=== PATIENT | male | born 1950 | race Caucasian/White ===

== ENCOUNTER 2020-03-12 11:00 | Emergency (ER) | payer MEDICARE, SELFPAY ==
--- NOTE | ~2020-03-12 | CT_ITS ---
EXAMINATION: CTA chest PE abdomen pel DATE: 03/12/2020 12:40 INDICATION: Shortness of breath. Chest pain. Cough. TECHNIQUE: Computed tomography angiography (CTA) of the chest was performed with 100 mL Omnipaque-350 intravenous contrast timed to evaluate the pulmonary arteries. Coronal maximum intensity projection 3D-reconstructions were created by the technologist. Computed tomography (CT) of the abdomen and pelv is was performed with intravenous contrast. Automated exposure control and iterative reconstruction t echnique were employed. The dose-length product was 2513.46 mGy-cm. COMPARISON: Chest CT 10/15/2019, 10/20/2008, CT abdomen and pelvis 03/17/2018 FINDINGS: CTA chest: There is mild emphysema. There is mild atelectasis bilaterally. There is a 6 mm nodule in right upper lobe, stable from 10/20/2008. No pleural effusion. The heart size is normal. There are co ronary artery calcifications. No pericardial effusion. There is no pulmonary embolus. There is mild b ilateral hilar lymphadenopathy, likely reactive. There is mild thoracic spondylosis. CT abdomen and pelvis: There is a 12 mm cyst in the liver. There are changes of cholecystectomy. Calc ifications in the spleen are consistent with old granulomatous disease. The pancreas and right adrena l gland are normal. There is a 2.7 cm mass in left adrenal gland measuring low-attenuation, consisten t with an adenoma. There is cortical thinning of the kidneys. There are cysts in the kidneys measurin g up to 4.2 cm on the right. There is chronic mild diffuse bladder wall thickening, likely secondary to chronic outlet obstruction from the mildly enlarged prostate. There are no pathologically enlarged lymph nodes. There is no free intraperitoneal fluid. There is a right inguinal hernia containing fat . There is moderate lumbar spondylosis. IMPRESSION: 1. No pulmonary embolus. 2. Mild emphysema. 3. Mild bilateral hilar lymphadenopathy, likely reactive. 4. Right inguinal hernia containing fat. Reviewed, dictated and finalized at location A.
--- NOTE | ~2020-03-12 | XR_ITS ---
EXAMINATION: XR chest 1V portable DATE: 03/12/2020 11:55 INDICATION: Cough and shortness of breath. TECHNIQUE: A single frontal view of the chest was obtained on 2 radiographs. COMPARISON: Chest 2 views 01/26/2018, chest CT 10/15/2019 FINDINGS: The chest demonstrates clear lungs without pneumonia, pleural effusion, or pneumothorax. Th e heart size is normal. IMPRESSION: 1. No acute cardiopulmonary disease. Reviewed, dictated and finalized at location A.
[2020-03-12 11:12] VITALS: BP 119/85; PULSE 57; RESP 13; TEMP 36.6; O2SAT 100
--- NOTE | 2020-03-12 11:12 | ECG_ITS ---
Measurements Intervals [place] Rate: 54 P: 15 NE: 201 QRS: 30 QRSD: 92 T: 63 QT: 430 QTc: 410 Interpretive Statements SINUS BRADYCARDIA BORDERLINE AV CONDUCTION DELAY BORDERLINE ST-T WAVE ABNORMALITY- LATERAL LEADS BORDERLINE ECG Electronically Signed On 03-12-2020 11:18:55 CDT by Rio Ng D.O.
[2020-03-12 11:17] VITALS: PULSE 59
[2020-03-12 11:18] VITALS: O2SAT 100
--- NOTE | 2020-03-12 11:36 | ED.SOB ---
HPI - SOB/Dyspnea General Chief Complaint: Shortness of Breath/Dyspnea Stated Complaint: cough/congestion/shortness of breath Time Seen by Provider: 03/12/20 11:12 Source: patient and family Mode of arrival: ambulatory Limitations: no limitations History of Present Illness HPI Narrative: Patient is a 69 male who presents to emergency department for evaluation of cough that is productive of clear phlegm with congestion rhinorrhea mild sore throat and over the last week has become more dyspneic called his primary care today was instructed to come to the emergency department. Patient denies sick contacts. Patient presents with his resting comfortably in the room in no distress. Patient notes he gets some mild irritation of the chest with coughing and deep breathing. Patient denies vomiting diarrhea. Patient also notes he experiences some lightheadedness and dizziness with exertional activities Related Data Home Medications Medication Instructions Recorded Confirmed amlodipine 10 mg tablet 10 mg PO DAILY 10/04/19 02/12/20 carvedilol 12.5 mg tablet 12.5 mg PO Q12H 01/31/20 02/12/20 simvastatin 20 mg tablet 20 mg PO DAILY 01/31/20 02/12/20 Allergies Allergy/AdvReac Type Severity Reaction Status Date / Time No Known Allergies Allergy Verified 02/07/20 08:40 Review of Systems Review of Systems: All systems reviewed & are unremarkable except as noted in HPI and below PMFSH Past Medical History Medical History Acute right-sided low back pain with right-sided sciatica Adult general medical exam Anxiety CAD in [place] artery Cirrhosis of liver without ascites Constipation Dizziness Dyslipidemia Dyspnea on exertion Encounter for screening for malignant neoplasm of colon Encounter for screening for malignant neoplasm of prostate Essential (primary) hypertension Gastro-esophageal reflux disease without esophagitis Generalized abdominal pain Hernia History of calculus of gallbladder Hyperglycemia Hypothyroidism, unspecified Left ankle pain Low back pain Morbid obesity with BMI of 40.0-44.9, adult Numbness and tingling of both feet Other fatigue Paresthesia of skin Preop cardiovascular exam Pure hypercholesterolemia Scrotal mass Spinal stenosis of lumbar region Syncope and collapse TIA (transient ischemic attack) Tobacco abuse (~1967) Unspecified cataract Surgical History Surgical History History of elbow surgery History of hand surgery History of plastic surgery History of right knee surgery History of shoulder surgery Social History Social History Years smoked: 50 Smoking status: Heavy tobacco smoker Tobacco type: cigarettes Second hand tobacco smoke exposure: Yes Alcohol intake: current Substance use: never Gender identity (if verbalized by the patient): Male Exam Narrative: Exam Narrative: GENERAL: Well-appearing, obese, and in no acute distress. HEAD: Normocephalic, atraumatic. EYES: PERRLA and EOMI. ENT: Nares clear, no rhinorrhea or epistaxis. Mucous membranes moist. Oropharynx without tonsillar hypertrophy exudate or other lesions. NECK: Supple. No adenopathy or masses. CHEST: Clear to auscultation. No respiratory distress. No wheezes rales or rhonchi HEART: Regular rate and rhythm. No murmur heard. Normal peripheral pulses. ABDOMEN: Soft, nontender, nondistended EXTREMITIES: Normal range of motion. No edema. SKIN: Warm, dry, no rash. NEURO: No focal deficits. Alert and oriented x3. Cranial nerves II through XII grossly intact PSYCH: Normal mood and affect. Course Course Emergency Course: Patient in the room at this time in no distress with likely prostatitis no pneumonia or other high risk changes in his imaging or evaluation normal vital signs felt appropriate for outpatient reevaluation agreeing to oscar
[2020-03-12 11:56] LABS: Basophils Absolute Auto 0.1 K/mm3 (0.0-0.1); Basophils Percent Auto 0.6 % (0.2-1.2); Eosinophils Absolute Auto 0.5 K/mm3 (0-0.3); Eosinophils Percent Auto 4.7 % (0-4.4); Hematocrit 41.6 % (42.0-52.0); Hemoglobin 14.1 g/dL (14.0-18.0); Immature Granulocyte Absolute 0.03 K/mm3 (0.00-0.031); Immature Granulocyte Percent A 0.3 % (0-0.5); Lymphocytes Absolute Auto 2.23 K/mm3 (0.9-3.2); Lymphocytes Percent Auto 20.6 % (18.3-44.2); Mean Corpuscular HGB Conc 33.9 g/dl (32-36); Mean Corpuscular Hemoglobin 31.8 pg (26-34); Mean Corpuscular Volume 93.9 fl (80-100); Mean Platelet Volume 11.6 fl (7.4-10.4); Monocytes Percent Auto 9.4 % (2.6-8.5); Neutrophils Percent Auto 64.4 % (45.5-73.1); Platelet Count Result 206 k/mm3 (150-375); Red Blood Count 4.43 M/mm3 (4.6-6.20); Red Cell Distribution Width 12.9 % (11.5-14.5); White Blood Count 10.8 K/mm3 (4.5-10.0)
[2020-03-12 12:07] LABS: Alanine Aminotransferase 15 U/L (4-50); Albumin Level 4.1 g/dL (3.5-5.1); Alkaline Phosphatase 71 U/L (38-126); Aspartate Amino Transferase 18 U/L (17-59); Bilirubin,Total 0.7 mg/dL (0.2-1.3); Blood Urea Nitrogen 12 mg/dL (9-20); Calcium 9.1 mg/dL (8.4-10.2); Carbon Dioxide 27 mmol/L (22-30); Chloride 106 mmol/L (98-107); Estimated CRCL calculation 121 ml/min; Estimated Glomerular Filt Rate > 60; Glucose 107 mg/dL (75-110); Lipase 191 U/L (23-300); Prothrombin Time 12.7 Seconds (11.1-14.7); Sodium 139 mmol/L (137-145)
[2020-03-12 12:08] LABS: Lactic Acid Reflex 0.9 mmol/L (0.7-2.1)
[2020-03-12 12:08] LABS: Partial Thromboplastin Time 28.9 SECONDS (22.3-36.8)
[2020-03-12 12:10] LABS: D Dimer 0.56 ug/mL (<0.48)
[2020-03-12 12:20] LABS: NT Pro B Type Natriuretic Pept 54 PG/ML (5-100); Troponin I < 0.012 ng/mL (0.000-0.034)
[2020-03-12 12:28] LABS: Add Urine Microscopic? YES; Appearance Urine Cloudy (Clear); Bacteria Urine Trace /hpf; Bilirubin Urine Negative (Negative); Blood Urine Negative (Negative); Color Urine Yellow (Yellow); Glucose Urine UA Negative (Negative); Ketones Urine Negative (Negative); Leukocyte Esterase Ur 2+ LEU/UL (Negative); Mucus Urine Rare /lpf; Nitrate Urine Positive (Negative); Protein Urine Negative (Negative); Specific Grav Ur 1.016 (1.001-1.035); Squamous Epithelial Cell Urine Few /hpf (Few); WBC Urine >75 /hpf
[2020-03-12 14:35] VITALS: BP 160/61; PULSE 50; RESP 16; O2SAT 99
== END 2020-03-12 14:40 | disposition home or self-care (01) ==
PROVIDERS: Emergency Medicine Emergency Medical Services; Emergency Provider Emergency Medicine; PCP Internal Medicine
DX: J06.9 Acute upper respiratory infection, unspecified (principal); N41.9 Inflammatory disease of prostate, unspecified; B96.89 Other specified bacterial agents as the cause of diseases classified elsewhere; J43.9 Emphysema, unspecified; I25.10 Atherosclerotic heart disease of native coronary artery without angina pectoris; K74.60 Unspecified cirrhosis of liver; E78.5 Hyperlipidemia, unspecified; K21.9 Gastro-esophageal reflux disease without esophagitis; I10 Essential (primary) hypertension; E03.9 Hypothyroidism, unspecified; E66.01 Morbid (severe) obesity due to excess calories; Z68.39 Body mass index [BMI] 39.0-39.9, adult; Z86.73 Personal history of transient ischemic attack (TIA), and cerebral infarction without residual deficits; H26.9 Unspecified cataract; F17.210 Nicotine dependence, cigarettes, uncomplicated; K44.9 Diaphragmatic hernia without obstruction or gangrene; R00.1 Bradycardia, unspecified; R94.31 Abnormal electrocardiogram [ECG] [EKG]; R06.02 Shortness of breath
CPT/HCPCS: 36415; 71045; 71275; 74177; 80053; 81001; 83605; 83690; 83880; 84484; 85025; 85380; 85610; 85730; 87040; 87077; 87086; 87088; 87186; 93005; 96365; 96375; 99284; J0131; J0696; Q9967

== ENCOUNTER → 2020-09-02 06:58 | Outpatient (CLI) | payer MEDICARE, SELFPAY ==
--- NOTE | ~2020-09-02 | US_ITS ---
EXAMINATION: US abdomen complete EXAM DATE: 09/02/2020 08:14 INDICATION: Epigastric pain. Unable to eat due to pain with eating. TECHNIQUE: Multiple grayscale and Doppler images of the complete abdomen were obtained (by a technolo gist who performed the scan) and subsequently reviewed. There is no prior study for comparison. FINDINGS: The abdominal aorta is normal in caliber. Visualized portion IVC is patent. The pancreatic head a nd body are normal in appearance. The pancreatic tail is not visualized. The liver has normal echogenicity and contour. There are no focal liver lesions identified. There is no evidence of intrahepatic biliary duct dilation. Portal venous flow was seen in the hepatopedal , normal direction and has normal Doppler waveform. Common bile duct measures 6 mm, which is normal. The gallbladder fossa is unremarkable. Right kidney: There is normal contour and echogenicity. It measures 12.5 x 5.5 x 6.5 centimeters. T here are several cysts, largest measuring 5.2 cm. There is no hydronephrosis. Left kidney: There is normal contour and echogenicity. It measures 11.4 x 6.3 x 5.9 centimeters. Se veral cysts, up to 3.8 cm. There is no hydronephrosis. The spleen measures 11.9 centimeters and is morphologically normal. IMPRESSION: 1. Unremarkable gallbladder fossa. No biliary dilation. 2. Renal cysts. Reviewed, dictated and finalized at location B.
== END ==
PROVIDERS: PCP Internal Medicine; Visit Provider Internal Medicine
DX: R10.13 Epigastric pain (principal); N28.1 Cyst of kidney, acquired
CPT/HCPCS: 76700

== ENCOUNTER 2020-09-19 07:38 | Outpatient (CLI) | payer MEDICARE, SELFPAY ==
--- NOTE | ~2020-09-19 | NM_ITS ---
EXAMINATION: NM patricio stress w perfusion DATE: 09/19/2020 11:15 INDICATION: Chest pain. TECHNIQUE: Rest images were obtained following intravenous administration of 9.3 mCi Tc99m tetrofosmi n (Myoview). The patient was infused intravenously with Lexiscan (regadenoson). Then, 30.2 mCi Tc99m tetrofosmin (Myoview) was administered intravenously, and stress images were obtained. Data was recon structed into short axis and horizontal and vertical long axis SPECT images. Gated SPECT images were also obtained. COMPARISON: Myocardial perfusion imaging 04/30/2019, chest CT 03/12/2020 FINDINGS: There is a small, mild, fixed perfusion defect involving mid anterolateral segment of left ventricle, consistent with infarct. No reversible component to suggest ischemia. There is no segment al wall motion abnormality. Left ventricular ejection fraction measures 63%. IMPRESSION: 1. Small area of mild infarct involving mid anterolateral segment of left ventricle. 2. Normal left ventricular ejection fraction measuring 63%. Reviewed, dictated and finalized at location A. IMPRESSION: 1. Small area of mild infarct involving mid anterolateral segment of left ventr icle. 2. Normal left ventricular ejection fraction measuring 63%.
--- NOTE | 2020-09-19 08:02 | ECHO_ITS ---
Patient Info Name: Hugh Diehl Age: 70 years : 1950 Gender: Male Ht: 71 in Wt: 262 lbs BSA: 2.48 m2 HR: 52 bpm BP: 128 / 72 mmHg Technical Quality: Fair Exam Date: 09/19/2020 8:14 AM Exam Location: [facility] Pulmonary Patient Status: Outpatient Admit Date: 09/19/2020 Staff Ordering Physician: Rio Ng DO Sugar Trucker: Luz Allen RDCS Attending Provider: Rio Ng DO Referring Physician: Hernandez AGUIRRE; Exam Type: CA echo doppler color flow Study Info Indications R07.89 - Other chest pain Complete two-dimensional, color flow and Doppler transthoracic echocardiogram is performed. Summary 1. Complete two-dimensional, color flow and Doppler transthoracic echocardiogram is performed. 2. Left ventricular chamber dimension is normal. 3. Left ventricular systolic function is normal, estimated at 60-65%. 4. There is mildly increased left ventricular wall thickness. 5. The left ventricular diastolic function is abnormal. 6. E/e' 22 is elevated. 7. Left atrial chamber dimension is mildly enlarged. 8. There is moderate aortic valve sclerosis. 9. There is mild aortic valve stenosis with a peak velocity of 311 cm/s, mean gradient of 19 mmHg, and aortic valve area of 1.6 cm2. 10. The mitral valve has moderately calcified annulus. 11. There is mild mitral valve regurgitation. 12. There is trace tricuspid valve regurgitation. 13. No pulmonary hypertension, estimated pulmonary arterial systolic pressure is 26 mmHg. 14. There is small right sided pericardial effusion. Left Ventricle E/e' 22 is elevated. Left ventricular chamber dimension is normal. Left ventricular systolic function is normal, estimated at 60-65%. There is mildly increased left ventricular wall thickness. The left ventricular diastolic function is abnormal. Right Ventricle Right ventricular chamber dimension is normal. Right ventricular systolic function is normal. Left Atria Left atrial chamber dimension is mildly enlarged. Right Atria Right atrial chamber dimension is normal. Aortic Valve The aortic valve is trileaflet. There is moderate aortic valve sclerosis. There is mild aortic valve stenosis with a peak velocity of 311 cm/s, mean gradient of 19 mmHg, and aortic valve area of 1.6 cm2. There is no aortic valve regurgitation. Pulmonic Valve There is no pulmonic regurgitation. Mitral Valve The mitral valve has moderately calcified annulus. There is no mitral valve stenosis. There is mild mitral valve regurgitation. Tricuspid Valve There is trace tricuspid valve regurgitation. No pulmonary hypertension, estimated pulmonary arterial systolic pressure is 26 mmHg. Pericardium/Pleural There is small right sided pericardial effusion. Inferior Vena Cava Normal inferior vena cava with >50% collapse upon inspiration consistent with normal right atrial pressure, 5 mmHg. Aorta The aortic root size at the sinus of Valsalva is normal. Left Ventricular Outflow Tract Name Value Normal LVOT 2D LVOT Diameter 2.0 cm LVOT Doppler LVOT Peak Gradient 8 mmHg LVOT Mean Gradient
--- NOTE | 2020-09-19 08:04 | EST_ITS ---
Patient Info Name: Hugh Diehl Age: 70 years : 1950 Gender: Male Ht: 71 in Wt: 262 lbs BSA: 2.48 m2 Exam Date: 09/19/2020 9:35 AM Exam Location: [facility] Stress Patient Status: Outpatient Admit Date: 09/19/2020 Staff Ordering Physician: Rio Ng DO Attending Provider: Rio Ng DO Exercise Technologist: Luz Allen RDCS Exercise Physician: Rio Ng DO Exam Type: CA stress patricio w NM Study Info Indications R07.89 - Other chest pain A regadenoson stress test was performed. Summary 1. 1. Negative lexiscan stress test for ischemic ST changes by ECG criteria. 2. 2. Stable hemodynamics throughout the test. 3. 3. Nuclear scan to follow and will be reported separately. Please correlate with it. 4. 4. Patient informed of the above results. Protocol: Lexiscan Stress ECG Details Stage: REST Duration (min): 5 min : 7 sec HR (bpm): 52 SBP (mmHg): 134 DBP (mmHg): 71 Stage: REST Duration (min): 10 min : 49 sec HR (bpm): 52 SBP (mmHg): 134 DBP (mmHg): 71 Stage: STAGE 1 Duration (min): 1 min : 0 sec HR (bpm): 62 SBP (mmHg): 109 DBP (mmHg): 63 Stage: RECOVERY Duration (min): 1 min : 0 sec HR (bpm): 64 SBP (mmHg): 107 DBP (mmHg): 62 Stage: RECOVERY Duration (min): 2 min : 0 sec HR (bpm): 61 SBP (mmHg): 107 DBP (mmHg): 62 Stage: RECOVERY Duration (min): 3 min : 0 sec HR (bpm): 62 SBP (mmHg): 121 DBP (mmHg): 62 Stage: RECOVERY Duration (min): 3 min : 3 sec HR (bpm): 61 SBP (mmHg): 121 DBP (mmHg): 62 Rest HR: 52 bpm Peak HR: 65 bpm Rest Sys BP: 134 mmHg Peak Sys BP: 121 mmHg Max Pred HR: 152 bpm % Max Pred HR: 43 % Target HR: 129 bpm Max RPP: 7,865 bpm*mmHg Termination Reason: Completed protocol Cardiac Symptoms: Shortness of breath Total Time: 1 min : 0 sec Rest Flower BP: 71 mmHg Peak Flower BP: 62 mmHg Total Dose: 0.4 mg Resting ECG Sinus bradycardia. Stress ECG No ST changes. Arrhythmias None. Report Signatures
== END 2020-09-19 07:39 | disposition home or self-care (01) ==
PROVIDERS: PCP Internal Medicine; Visit Provider Internal Medicine Cardiovascular Disease
DX: R07.89 Other chest pain (principal); I34.0 Nonrheumatic mitral (valve) insufficiency; I35.1 Nonrheumatic aortic (valve) insufficiency
CPT/HCPCS: 78452; 93017; 93306; A9502; J2785

== ENCOUNTER → 2021-02-12 12:13 | Outpatient (CLI) | payer MEDICARE, SELFPAY ==
--- NOTE | ~2021-02-12 | XR_ITS ---
EXAMINATION: XR chest 2V DATE: 02/12/2021 12:31 INDICATION: Cough. TECHNIQUE: Frontal and lateral views of the chest were obtained on 3 radiographs. COMPARISON: Chest single view 03/12/2020, chest CT 03/12/2020 FINDINGS: There are interstitial opacities in the lower lung zones. No pleural effusion or pneumothor ax. The heart size is normal. There are surgical clips in the abdomen. IMPRESSION: 1. Interstitial opacities in the lower lung zones, consistent with mild pulmonary edema versus mild a telectasis/scarring. Reviewed, dictated and finalized at location A. IMPRESSION: 1. Interstitial opacities in the lower lung zones, consistent with mild pulmona ry edema versus mild atelectasis/scarring.
== END ==
PROVIDERS: PCP Physician Assistant; Visit Provider Physician Assistant
DX: R05 Cough (principal); R91.8 Other nonspecific abnormal finding of lung field
CPT/HCPCS: 71046

== ENCOUNTER 2021-06-17 15:11 | Emergency (ER) | payer MEDICARE, SELFPAY ==
--- NOTE | ~2021-06-17 | XR_ITS ---
XR knee LT min 4V DATE: 06/17/2021 15:42 INDICATION: Generalized left knee pain. [place]. TECHNIQUE: [place], lateral, bilateral oblique, AP views COMPARISON: None FINDINGS: Diffuse osteopenia. There is extensive calcification of the femoral, popliteal and trifurcation arteries. No fracture or dislocation, periosteal reaction or bone destruction is evident. There is osteoarthrit is at the patellofemoral compartment. No chondrocalcinosis or radiopaque intra-articular loose body i s evident. Chondrocalcinosis of the patella at the quadriceps and patellar tendon insertions. 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
[2021-06-17 15:18] VITALS: BP 145/66; PULSE 72; RESP 18; TEMP 36.6; O2SAT 99
--- NOTE | 2021-06-17 15:52 | ED.GENADULT ---
HPI - General Adult General Chief complaint: Extremity Injury, Lower Stated complaint: Possible injury to left Knee Time Seen by Provider: 06/17/21 15:52 Source: patient and RN notes reviewed Mode of arrival: ambulatory Limitations: no limitations History of Present Illness HPI narrative: 70-year-old male presents with complaints of left knee pain and swelling for the past 11 days. 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 Hydrocodone 10mg with 325 mg of Tylenol last taken today at 3 PM without relief. No known injury. ?No radiation of pain. No numbness or tingling, or bleeding. No loss of mobility. Exacerbating factor consists of bearing weight. No fever or chills. Remains active. The patient reports he has not been diagnosed with COVID-19. ?The patient reports he received 2 Moderna COVID-19 vaccines. ?The patient reports he is not waiting for the results of a COVID-19 lab test. ?The patient reports he does not have weakness, fatigue, or myalgia. ?The patient reports he does not have a new or worsening cough or shortness of breath. ?The patient reports he does not have any rhinorrhea, congestion, loss of taste or smell, sore throat, and diarrhea. ?Recently travelled for work,?returned today. ?Denies concerns for COVID-19 or exposures. ?At this time, the patient is not suspected of having COVID-19. Some parts of this dictation were generated by voice recognition software and may contain typographical and/or grammatical inaccuracies. Related Data Allergies Allergy/AdvReac Type Severity Reaction Status Date / Time No Known Allergies Allergy Verified 06/19/21 10:32 Review of Systems Review of Systems: Narrative: CONSTITUTIONAL: Denies fever, chills, sweats. EYES: Denies visual changes, redness, discharge. ENT: Denies rhinorrhea, congestion, sore throat, otalgia. CARDIOVASCULAR: Denies chest pain, palpitations, edema. RESPIRATORY: Denies dyspnea, wheezing, cough. GASTROINTESTINAL: Denies abdominal pain, nausea, vomiting, diarrhea. GENITOURINARY: Denies dysuria, hematuria, abnormal discharge SKIN: Denies rash or itching. MUSCULOSKELETAL: Denies acute back pain or myalgia. Complains of Left knee pain and swelling. NEUROLOGIC: Denies numbness or focal weakness. PSYCHIATRIC: Denies anxiety or depression. All other systems reviewed & are unremarkable except as noted in HPI and below. [facility] Past Medical History Medical History Acute right-sided low back pain with right-sided sciatica Adult general medical exam Anxiety CAD in [place] artery Cirrhosis of liver without ascites Constipation Dizziness Dyslipidemia Dyspnea on exertion Encounter for screening for malignant neoplasm of colon Encounter for screening for malignant neoplasm of prostate Epigastric pain Essential (primary) hypertension Gastro-esophageal reflux disease without esophagitis Generalized abdominal pain Hernia History of calculus of gallbladder Hyperglycemia Hypothyroidism, unspecified Left ankle pain Low back pain Morbid obesity with BMI of 40.0-44.9, adult Numbness and tingling of both feet Other fatigue Paresthesia of skin Preop cardiovascular exam Pure hypercholesterolemia Scrotal mass Spinal stenosis of lumbar region Syncope and collapse TIA (transient ischemic attack) Tobacco abuse (~1967) Unspecified cataract Surgical History Surgical History History of elbow surgery History of hand surgery History of plastic surgery History of right knee surgery History of shoulder surgery Family History Family History Sibling Hypertension Patient's brother is in good health Family history of diabetes mellitus in first degree relative Father Patient's father is Family history of congestive heart failure, Onset
[2021-06-17] MEDS: KETOROLAC (*BKC) 60 MG/2 ML VIAL IM (16:10)
== END 2021-06-17 16:56 | disposition home or self-care (01) ==
PROVIDERS: Emergency Provider Nurse Practitioner Family; PCP Internal Medicine
DX: M17.12 Unilateral primary osteoarthritis, left knee (principal); F17.210 Nicotine dependence, cigarettes, uncomplicated; F41.9 Anxiety disorder, unspecified; I25.10 Atherosclerotic heart disease of native coronary artery without angina pectoris; K74.60 Unspecified cirrhosis of liver; E78.5 Hyperlipidemia, unspecified; K21.9 Gastro-esophageal reflux disease without esophagitis; I10 Essential (primary) hypertension; E03.9 Hypothyroidism, unspecified; E66.01 Morbid (severe) obesity due to excess calories; Z68.37 Body mass index [BMI] 37.0-37.9, adult; E78.00 Pure hypercholesterolemia, unspecified; Z86.73 Personal history of transient ischemic attack (TIA), and cerebral infarction without residual deficits; M48.061 Spinal stenosis, lumbar region without neurogenic claudication
CPT/HCPCS: 73564; 96372; 99213; G0463; J1885

== ENCOUNTER → 2021-08-06 02:39 | Outpatient (CLI) | payer MEDICARE, SELFPAY ==
[2021-08-07 18:57] LABS: SARS-CoV-2 RNA PCR Negative
== END ==
PROVIDERS: PCP Internal Medicine; Visit Provider Internal Medicine
DX: R43.2 Parageusia (principal); Z20.822 Contact with and (suspected) exposure to COVID-19
CPT/HCPCS: C9803; U0003; U0005

== ENCOUNTER 2021-10-21 01:25 | Day surgery (SDC) | payer MEDICARE, SELFPAY ==
[2021-10-21] MEDS: LACTATED RINGERS 1,000 ML 150 ML IV CONT (07:24)
--- NOTE | 2021-10-21 07:26 | WPDANESEPPF ---
Anes - Initial Pre Proc Eval Procedure: Operation Date: 10/21/21 08:30 Proposed Procedures p Colonoscopy - Glenn Irizarry MD Date/Time: 10/21/21 07:26 Surgeon: Glenn Irizarry MD Pre Op Diagnosis: change in bowel habits Patient Data Age: 71 Gender: M Height: Weight: Allergies Allergy/AdvReac Type Severity Reaction Status Date / Time No Known Allergies Allergy Verified 10/21/21 07:17 Home Medications Medication Instructions Recorded Confirmed Type simvastatin 20 mg tablet 20 mg PO DAILY #90 tablet 12/29/20 10/08/21 Rx albuterol sulfate 90 mcg/actuation 1 - 2 inh INHALATION Q4-6H PRN 03/04/21 10/21/21 Rx aerosol inhaler #8.5 g amlodipine 10 mg tablet 10 mg PO DAILY #90 tablet 09/09/21 10/21/21 Rx famotidine 40 mg tablet 40 mg PO BID #180 tablet 09/09/21 10/21/21 Rx lisinopril 40 mg tablet 40 mg PO DAILY #90 tablet 09/09/21 10/21/21 Rx paroxetine HCl 40 mg tablet 40 mg PO DAILY #90 tablet 09/09/21 10/08/21 Rx hydrocodone 10 mg-acetaminophen 1 tablet PO Q8H PRN #60 tablet 09/15/21 10/21/21 Rx 325 mg tablet carvedilol 12.5 mg PO DAILY 10/08/21 10/21/21 History fluticasone propion-salmeterol 1 inh INHALATION BID 10/08/21 10/21/21 History [AirDuo RespiClick] levothyroxine [Synthroid] 75 mcg PO DAILY 10/08/21 10/21/21 History Patient hx anesthesia problems: none Family hx anesthesia problems: none Results Review: All pre-operative results and documents have been reviewed as part of the pre-operative evaluation. [facility] Past Medical History Medical History Acute right-sided low back pain with right-sided sciatica Adult general medical exam Anxiety CAD in [place] artery Cirrhosis of liver without ascites Constipation Dizziness Dyslipidemia Dyspnea on exertion Encounter for screening for malignant neoplasm of colon Encounter for screening for malignant neoplasm of prostate Epigastric pain Essential (primary) hypertension Gastro-esophageal reflux disease without esophagitis Generalized abdominal pain Hernia History of calculus of gallbladder Hyperglycemia Hypothyroidism, unspecified Left ankle pain Low back pain Morbid obesity with BMI of 40.0-44.9, adult Numbness and tingling of both feet Other fatigue Paresthesia of skin Preop cardiovascular exam Pure hypercholesterolemia Scrotal mass Spinal stenosis of lumbar region Syncope and collapse TIA (transient ischemic attack) Tobacco abuse (~1967) Unspecified cataract Surgical History Surgical History History of elbow surgery History of hand surgery History of plastic surgery History of right knee surgery History of shoulder surgery Family History Family History Sibling Hypertension Patient's brother is in good health Family history of diabetes mellitus in first degree relative Father Patient's father is Family history of congestive heart failure, Onset Age: 73 Mother Diabetes mellitus, Onset Age: 80 Family history of congestive heart failure, Onset Age: 80 Social History Social History Smoking packs per day: 1 Smoking cigarettes per day: 20.0 Years smoked: 40 Smoking pack-years: 40.00 Smoking status: Current every day smoker Tobacco type: cigarettes Second hand tobacco smoke exposure: Yes Additional smoking assessment comments: Hugh has decreased smoking to 1PPD at this time Alcohol intake: current Drinks per week: 3 Substance use type: opiates Other substance usage details: for chronic back pain Living arrangements: with family Gender identity (if verbalized by the patient): Male Sexual Orientation (if Verbalized by the Patient): Straight or Heterosexual Spiritual care concerns: No Anes - Eval Final PreProcedure Day of
[2021-10-21 07:27] VITALS: BP 141/64; PULSE 65; RESP 18; TEMP 36.2; O2SAT 97; BMI 36.4
--- NOTE | 2021-10-21 07:51 | PM.HPGS ---
History of Present Illness History of Present Illness Consent: Risks, benefits, and alternatives have been discussed and questions answered. Patient agrees to proceed with procedure. Chief complaint: change in bowel habits Narrative: Hugh Diehl is a 71 year old male with chronic constipation using dulcolax and Mag citrate as needed but also on hydrocodone for almost 20 years, intermittent abdominal pain. Last colonoscopy 5 years ago. Review of Systems Constitutional: Constitutional: Denies headache(s) and Denies weakness Eyes: Eyes: Denies blurry vision ENT: Reports Normal hearing present, Denies headache(s) and Denies neck pain Cardiovascular: Cardiovascular: Denies chest pain and Denies dyspnea Respiratory: Respiratory: Denies dyspnea Gastrointestinal: Gastrointestinal: Reports no additional gastrointestinal complaints Genitourinary: Genitourinary: Denies dysuria Musculoskeletal: Musculoskeletal: Denies neck pain Integumentary/Breasts: Skin/Breast: Denies dry skin Neurologic: Reports Normal hearing present, Denies headache(s) and Denies weakness Psychiatric: Psychiatric: Denies anxiety Endocrine: Endocrine: Denies change in body appearance Hematologic/Lymphatic: Hematologic/Lymphatic: Denies easy bleeding Allergic/Immunologic: Allergic/Immunologic: Denies urticaria PMF Past Medical History Medical History (Updated 10/21/21 @ 07:53 by Glenn Irizarry MD) Abdominal pain Acute right-sided low back pain with right-sided sciatica Adult general medical exam Anxiety CAD in [place] artery Cirrhosis of liver without ascites Constipation Constipation due to opioid therapy Dizziness Dyslipidemia Dyspnea on exertion Encounter for screening for malignant neoplasm of colon Encounter for screening for malignant neoplasm of prostate Epigastric pain Essential (primary) hypertension Gastro-esophageal reflux disease without esophagitis Generalized abdominal pain Hernia History of calculus of gallbladder Hyperglycemia Hypothyroidism, unspecified Left ankle pain Low back pain Morbid obesity with BMI of 40.0-44.9, adult Numbness and tingling of both feet Other fatigue Paresthesia of skin Preop cardiovascular exam Pure hypercholesterolemia Scrotal mass Spinal stenosis of lumbar region Syncope and collapse TIA (transient ischemic attack) Tobacco abuse (~1967) Unspecified cataract Surgical History Surgical History History of elbow surgery History of hand surgery History of plastic surgery History of right knee surgery History of shoulder surgery Family History Family History Sibling Hypertension Patient's brother is in good health Family history of diabetes mellitus in first degree relative Father Patient's father is Family history of congestive heart failure, Onset Age: 73 Mother Diabetes mellitus, Onset Age: 80 Family history of congestive heart failure, Onset Age: 80 Social History Social History Smoking packs per day: 1 Smoking cigarettes per day: 20.0 Years smoked: 40 Smoking pack-years: 40.00 Smoking status: Current every day smoker Tobacco type: cigarettes Second hand tobacco smoke exposure: Yes Additional smoking assessment comments: Hugh has decreased smoking to 1PPD at this time Alcohol intake: current Drinks per week: 3 Substance use type: opiates Other substance usage details: for chronic back pain Living arrangements: with family Gender identity (if verbalized by the patient): Male Sexual Orientation (if Verbalized by the Patient): Straight or Heterosexual Spiritual care concerns: No Meds Home Medications and Allergies Home Medications Medication Instructions Recorded Confirmed Type simvastatin 20 mg tablet 20 mg PO DAILY #90 tablet 0
[2021-10-21 08:29] VITALS: BP 76/33; PULSE 57; RESP 17; O2SAT 96
[2021-10-21 08:39] VITALS: BP 104/39; PULSE 57; RESP 17; O2SAT 98
[2021-10-21 08:49] VITALS: BP 121/41; PULSE 53; RESP 17; O2SAT 99
[2021-10-21 08:59] VITALS: BP 113/67
== END 2021-10-21 09:05 | disposition home or self-care (01) ==
PROVIDERS: PCP Internal Medicine; Visit Provider Internal Medicine Gastroenterology
PROC: 0DJD8ZZ Inspection of Lower Intestinal Tract, Via Natural or Artificial Opening Endoscopic (ICD-10-PCS; CPT 45378; principal; 2021-10-21 08:30)
DX: R10.84 Generalized abdominal pain (principal); D12.2 Benign neoplasm of ascending colon; K59.03 Drug induced constipation; K57.30 Diverticulosis of large intestine without perforation or abscess without bleeding; K64.8 Other hemorrhoids; F41.9 Anxiety disorder, unspecified; I25.10 Atherosclerotic heart disease of native coronary artery without angina pectoris; K74.60 Unspecified cirrhosis of liver; E78.5 Hyperlipidemia, unspecified; I10 Essential (primary) hypertension; E03.9 Hypothyroidism, unspecified; K21.9 Gastro-esophageal reflux disease without esophagitis; R73.9 Hyperglycemia, unspecified; R20.2 Paresthesia of skin; E78.00 Pure hypercholesterolemia, unspecified; M48.061 Spinal stenosis, lumbar region without neurogenic claudication; Z86.73 Personal history of transient ischemic attack (TIA), and cerebral infarction without residual deficits; F17.210 Nicotine dependence, cigarettes, uncomplicated; Z79.51 Long term (current) use of inhaled steroids; E66.9 Obesity, unspecified; Z68.36 Body mass index [BMI] 36.0-36.9, adult
CPT/HCPCS: 45385; 88305; J2704; J7120

== ENCOUNTER → 2021-11-04 02:40 | Outpatient (CLI) | payer MEDICARE, SELFPAY ==
[2021-11-04 20:26] LABS: SARS-CoV-2 RNA PCR Negative
== END ==
PROVIDERS: PCP Internal Medicine; Visit Provider Internal Medicine
DX: R05.9 Cough, unspecified (principal); Z20.822 Contact with and (suspected) exposure to COVID-19
CPT/HCPCS: C9803; U0003; U0005

== ENCOUNTER 2021-11-04 09:39 | Outpatient (CLI) | payer MEDICARE, SELFPAY ==
[2021-11-04 10:21] LABS: Alanine Aminotransferase 12 U/L (4-50); Albumin Level 4.2 g/dL (3.5-5.1); Alkaline Phosphatase 91 U/L (38-126); Anion Gap 7 mmol/L (8-16); Aspartate Amino Transferase 17 U/L (17-59); Bilirubin,Total 0.4 mg/dL (0.2-1.3); Blood Urea Nitrogen 9 mg/dL (9-20); Calcium 9.2 mg/dL (8.4-10.2); Carbon Dioxide 25 mmol/L (22-30); Chloride 104 mmol/L (98-107); Cholesterol 161 mg/dL (0-200); Estimated Glomerular Filt Rate > 60; Glucose 92 mg/dL (65-110); HDL Direct 22 mg/dL; Hemoglobin A1C 5.2 % (<5.7); Lipase 75 U/L (23-300); Sodium 136 mmol/L (137-145); Triglycerides 142 mg/dL (<150)
[2021-11-04 10:33] LABS: LDL Cholesterol Direct 113 mg/dL
[2021-11-04 10:52] LABS: Prostate Specific Antigen 1.3 ng/mL (< OR = 4.0)
[2021-11-04 10:55] LABS: Free T4 Free Thyroxine 1.07 ng/mL (0.78-2.19)
[2021-11-04 11:28] LABS: Folic Acid 7.5 ng/mL (2.76->20)
== END 2021-11-04 09:40 | disposition home or self-care (01) ==
LOC: ANHLAB 09:44
PROVIDERS: PCP Internal Medicine; Visit Provider Internal Medicine
DX: Z12.5 Encounter for screening for malignant neoplasm of prostate (principal); C61 Malignant neoplasm of prostate; R10.9 Unspecified abdominal pain; R53.83 Other fatigue; R73.9 Hyperglycemia, unspecified; E78.5 Hyperlipidemia, unspecified
CPT/HCPCS: 36415; 80053; 80061; 82607; 82746; 83036; 83690; 84153; 84439; 84443; C9803; G0103; U0003; U0005

== ENCOUNTER 2021-12-11 12:59 | Outpatient (CLI) | payer MEDICARE, SELFPAY ==
--- NOTE | ~2021-12-11 | CT_ITS ---
EXAMINATION: CT abdomen pelvis w con INDICATION: Unspecified abdominal pain TECHNIQUE: Computed tomographic images of the abdomen and pelvis were obtained after the administrati on of 100 cc of Omnipaque 350 intravenous contrast. The dose-length product (DLP) was 1460.69 mGy-cm. Automated exposure control and iterative reconstruction technique were employed. COMPARISON: 03/12/2020 FINDINGS: Minimal dependent atelectasis is present in the lung bases. The heart size is normal. Calci fied coronary artery atherosclerosis. The gallbladder is surgically absent. There is mild enlargement of the common bile duct and central intrahepatic ducts which is likely due to post cholecystectomy s ryan. There is mild nodularity of the liver surface. There is a 12 mm cyst of the liver. Punctate sean cifications in an otherwise normal spleen likely represent healed granulomatous disease. There is a c hronic 2.7 cm adenoma of the left adrenal gland. Cysts of the kidneys measure up to 4.7 cm on the rig ht. There is calcified atherosclerosis of the aorta and many of the other arteries. No pathologically enlarged abdominal or pelvic lymph nodes are identified. There is no free intraperitoneal gas or fito dence of bowel obstruction. Colonic diverticulosis is present without evidence of diverticulitis. The re is moderate lumbar spondylosis. IMPRESSION: 1. No CT correlate for the patient's symptoms. 2. Mild nodularity of the liver surface, consistent with cirrhosis. Reviewed, dictated and finalized at location F. 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
--- NOTE | ~2021-12-11 | MR_ITS ---
EXAMINATION: MR lumbar spine wo con DATE: 12/11/2021 14:27 INDICATION: Dorsalgia, unspecified. TECHNIQUE: Magnetic resonance imaging (MRI) of the lumbar spine was performed without intravenous con trast. Sequences included sagittal T2-weighted FSE, sagittal T2-weighted FS FSE, sagittal T1-weighted FSE, and axial T2-weighted FSE. COMPARISON: Lumbar spine MRI 04/15/2018 FINDINGS: There is 4 degrees dextrocurvature of lumbar spine. S1 is a transitional segment. There are Schmorl's nodes at T11-T12, T12-L1, and L5-S1. There is mildly decreased disc height at L3-L4 and L5 -S1. Epidural lipomatosis is noted. The distal spinal cord signal intensity is normal. The conus medu llaris is at L1. The following disc levels are specifically discussed: L1-L2: The disc does not extend beyond the endplate margin. There is mild bilateral facet joint osteo arthritis. There is no neural foraminal stenosis. There is no central canal stenosis. L2-L3: There is a left foraminal protrusion. There is mild right and moderate left facet joint osteoa rthritis. There is mild left neural foraminal stenosis. There is no central canal stenosis. L3-L4: The disc is bulging. There is severe bilateral facet joint osteoarthritis. There is moderate b ilateral neural foraminal stenosis. There is mild central canal stenosis. L4-L5: The disc is bulging and has an annular fissure. There is severe bilateral facet joint osteoart hritis. There is moderate bilateral neural foraminal stenosis. There is mild central canal stenosis. L5-S1: The disc is bulging and has an annular fissure. There is severe bilateral facet joint osteoart hritis. There is moderate right and mild left neural foraminal stenosis. There is mild central canal stenosis. IMPRESSION: 1. Moderate lumbar spondylosis, stable from 04/15/2018. Reviewed, dictated and finalized at location B. 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
[2021-12-11 14:52] LABS: Estimated Glomerular Filt Rate > 60
== END 2021-12-11 13:00 | disposition home or self-care (01) ==
PROVIDERS: PCP Internal Medicine; Visit Provider Internal Medicine
DX: R10.9 Unspecified abdominal pain (principal); M47.896 Other spondylosis, lumbar region
CPT/HCPCS: 72148; 74177; Q9967

== ENCOUNTER 2022-01-23 10:04 | Emergency (ER) | payer MEDICARE, SELFPAY ==
--- NOTE | ~2022-01-23 | XR_ITS ---
EXAMINATION: XR elbow RT min 3V EXAM DATE: 01/23/2022 11:25 INDICATION: Fell On Ice 01/23/22. Post Pain numbness. TECHNIQUE: Right elbow frontal, lateral with flexion, and oblique projections obtained and reviewed. There is no prior study for comparison. FINDINGS: Right elbow anterior humeral line intact. Sequela from old distal humeral epicondylar avul deuce injuries. Mild elbow osteoarthritis. There are no acute fractures or dislocations identified. T here is no subcutaneous gas. The soft tissue is unremarkable. There are no radiopaque foreign bodi es. IMPRESSION: No acute osseous findings. Reviewed, dictated and finalized at location A. DEVELOPER IMPRESSION: No acute osseous findings.
--- NOTE | ~2022-01-23 | XR_ITS ---
EXAMINATION: XR shoulder RT min 2V EXAM DATE: 01/23/2022 11:15 INDICATION: Fell On Ice 01/23/22. LROM Since. TECHNIQUE: The following right shoulder projections obtained: frontal projection with internal rotati on, frontal projection with external rotation, Grashey, and scapular Y view (4+ views). There is no prior study for comparison. FINDINGS: No evidence of right shoulder rotator cuff calcific tendinosis. There is mild glenohumera l joint, moderate acromioclavicular joint primary osteoarthritis. Age-indeterminate right 3rd rib fra cture laterally. No evidence of shoulder fracture. IMPRESSION: Age-indeterminate right 3rd rib fracture laterally. Shoulder osteoarthritis. Reviewed, dictated and finalized at location A. 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 Shoulder osteo arthritis.
[2022-01-23 10:15] VITALS: BP 130/80; PULSE 68; RESP 20; TEMP 36.7; O2SAT 98
--- NOTE | 2022-01-23 11:02 | ED.BACK ---
HPI - Back Pain/Injury General Chief Complaint: Extremity Injury, Upper Stated Complaint: shoulder / elbow injury Time Seen by Provider: 01/23/22 10:45 Source: patient and RN notes reviewed Mode of arrival: ambulatory Limitations: no limitations History of Present Illness HPI Narrative: Patient presents today complaining of right shoulder and elbow injury after falling on some ice 1 hour prior to arrival. Denies head injury or loss of consciousness. Denies numbness or tingling in the arm or hand. He currently rates his pain 10/10. Pain increases with movement. Patient has had a previous rotator cuff repair to the right shoulder. Related Data Home Medications Medication Instructions Recorded Confirmed carvedilol 12.5 mg PO DAILY 10/08/21 12/23/21 fluticasone propion-salmeterol 1 inh INHALATION BID 10/08/21 12/23/21 [AirDuo RespiClick] levothyroxine [Synthroid] 75 mcg PO DAILY 10/08/21 12/23/21 Allergies Allergy/AdvReac Type Severity Reaction Status Date / Time No Known Allergies Allergy Verified 12/23/21 13:23 Review of Systems Review of Systems: CONSTITUTIONAL: Denies body aches, fever, chills, or sweats. EYES: Denies visual changes, redness, or discharge. ENT: Denies rhinorrhea, congestion, sore throat, or otalgia. CARDIOVASCULAR: Denies chest pain, palpitations, or edema. RESPIRATORY: Denies cough or dyspnea. GASTROINTESTINAL: Denies abdominal pain, nausea, vomiting, or diarrhea. GENITOURINARY: Denies dysuria or hematuria. SKIN: Denies rash, itching, or wounds. MUSCULOSKELETAL: Denies back pain, or myalgia. + Right shoulder and elbow injury NEUROLOGIC: Denies headache, numbness, tingling, or weakness. PSYCH: Denies depression or anxiety. [facility] Past Medical History Medical History Abdominal pain Acute right-sided low back pain with right-sided sciatica Adult general medical exam Anxiety CAD in [place] artery Cirrhosis of liver without ascites Constipation Constipation due to opioid therapy Dizziness Dyslipidemia Dyspnea on exertion Encounter for screening for malignant neoplasm of colon Encounter for screening for malignant neoplasm of prostate Epigastric pain Essential (primary) hypertension Gastro-esophageal reflux disease without esophagitis Generalized abdominal pain Hernia History of calculus of gallbladder Hyperglycemia Hypothyroidism, unspecified Left ankle pain Low back pain Morbid obesity with BMI of 40.0-44.9, adult Numbness and tingling of both feet Other fatigue Paresthesia of skin Preop cardiovascular exam Pure hypercholesterolemia Scrotal mass Spinal stenosis of lumbar region Syncope and collapse TIA (transient ischemic attack) Tobacco abuse (~1967) Unspecified cataract Surgical History Surgical History History of elbow surgery History of hand surgery History of plastic surgery History of right knee surgery History of shoulder surgery Family History Family History Sibling Hypertension Patient's brother is in good health Family history of diabetes mellitus in first degree relative Father Patient's father is Family history of congestive heart failure, Onset Age: 73 Mother Diabetes mellitus, Onset Age: 80 Family history of congestive heart failure, Onset Age: 80 Social History Social History Smoking packs per day: 1 Smoking cigarettes per day: 20.0 Years smoked: 40 Smoking pack-years: 40.00 Tobacco type: cigarettes Second hand tobacco smoke exposure: Yes Additional smoking assessment comments: Hugh has decreased smoking to 1PPD at this time Alcohol intake: current Drinks per week: 3 Substance use type: opiates Other substance usage details: for chronic back pain Gender
== END 2022-01-23 12:18 | disposition home or self-care (01) ==
PROVIDERS: Emergency Provider Nurse Practitioner; PCP Internal Medicine
DX: S22.31XA Fracture of one rib, right side, initial encounter for closed fracture (principal); W00.0XXA Fall on same level due to ice and snow, initial encounter; S49.91XA Unspecified injury of right shoulder and upper arm, initial encounter; S50.01XA Contusion of right elbow, initial encounter; F17.210 Nicotine dependence, cigarettes, uncomplicated; I25.10 Atherosclerotic heart disease of native coronary artery without angina pectoris; K74.60 Unspecified cirrhosis of liver; E78.5 Hyperlipidemia, unspecified; I10 Essential (primary) hypertension; K21.9 Gastro-esophageal reflux disease without esophagitis; E03.9 Hypothyroidism, unspecified; E66.01 Morbid (severe) obesity due to excess calories; Z68.35 Body mass index [BMI] 35.0-35.9, adult; E78.00 Pure hypercholesterolemia, unspecified; Z86.73 Personal history of transient ischemic attack (TIA), and cerebral infarction without residual deficits; M48.061 Spinal stenosis, lumbar region without neurogenic claudication
CPT/HCPCS: 73030; 73080; 99214; A4565; G0463

== ENCOUNTER 2022-02-17 14:16 | Outpatient (CLI) | payer MEDICARE, SELFPAY ==
--- NOTE | ~2022-02-17 | MR_ITS ---
EXAMINATION: MR shoulder RT wo con DATE: 02/17/2022 15:16 INDICATION: Right shoulder pain TECHNIQUE: Magnetic resonance imaging (MRI) of the right shoulder was performed without intravenous c ontrast. Sequences included axial PD-weighted FS FSE, coronal oblique PD-weighted FS FSE, coronal obl ique T2-weighted FS FSE, sagittal PD-weighted FS FSE, and sagittal T1-weighted SE. COMPARISON: Right shoulder radiographs dated 01/23/2022 FINDINGS: Coracoacromial arch: There are few small foci of susceptibility artifact along the curve undersurface of the acromion whic h appears thinned system with prior acromioplasty. There is been resection of the acromial attachment of the otherwise normal coracoacromial ligament. There is also been prior distal clavicle resection with small amount of fluid within the widened acromioclavicular joint space. Rotator cuff: Susceptibility artifact along the greater tuberosity with suggestion of a couple suture anchor tracks likely related to a prior rotator cuff repair. Recurrent complete full-thickness tears of the supras pinatus and infraspinatus tendons with the tear margin retracted approximately 3.5 cm medially from t he footplate. There is moderate to severe tendinopathy extending approximately 2-2.5 cm medially from the frayed and medially retracted supraspinatus and infraspinatus tear margins. The teres minor tend on is normal. Moderate subscapularis tendinopathy with tear involving the cephalad two thirds of the lesser tuberosity footplate. The muscular and tendinous insertion along the caudal third of the lesse r tuberosity appears to remain intact as do the bursal sided most fibers of the more cephalad portion of the tendon which remain contiguous with the the thickened and likely partially torn transverse hu meral ligament. Fatty atrophy of the rotator cuff musculature, severe of the subscapularis, moderate at the infraspinatus and mild of the supraspinatus and teres minor muscle bulk. Additional mild fatty atrophy of the deltoid muscle. Biceps tendon, glenoid labrum and glenohumeral cartilage: Mild tendinopathy with longitudinal split tearing of the intra-articular and extra-articular portions of the long head biceps tendon. Glenoid labrum is normal. Small region of deep chondral ulceration a long the superior rim of the glenoid with small focus of underlying edema-like increased marrow signa l. Cartilage at the humeral head remains relatively preserved. Fluid: Small glenohumeral joint effusion. Small amount of fluid in the subacromial/subdeltoid and subcoracoi d bursae likely reflecting decompression of fluid from the glenohumeral joint space through the full- thickness rotator cuff tear defect. No loose osteochondral bodies. Bones: Cephalad subluxation of the humeral head with respect to the glenoid is secondary to the rotator cuff tear. No fracture or pathologic marrow replacing process. IMPRESSION: 1. Full-thickness likely recurrent complete tears of the right supraspinatus and infraspinatus tendon s and involving the cephalad two thirds of the lesser tuberosity footplate of the subscapularis tendo n with changes at the greater tuberosity suggesting prior rotator cuff repair. 2. Mild tendinopathy and longitudinal split tearing of the long head biceps tendon. 3. Mild glenohumeral osteoarthritis with small region of high-grade chondromalacia at the superior ri m of the glenoid. 4. Postoperative change of prior acromioplasty and distal clavicle resection. Reviewed, dictated and finalized at location A. IMPRESSION: 1. Full-thickness likely recurrent complete tears of the right supraspinatus an d infraspinatus tendons and involving the cephalad two thirds of the lesser tub erosity footplate of the subscapularis tendon
== END 2022-02-17 14:17 | disposition home or self-care (01) ==
LOC: ANHIMG 14:22
PROVIDERS: PCP Internal Medicine; Visit Provider Orthopaedic Surgery
DX: M19.011 Primary osteoarthritis, right shoulder (principal)
CPT/HCPCS: 73221

== ENCOUNTER 2022-08-17 07:23 | Outpatient (CLI) | payer MEDICARE, SELFPAY ==
--- NOTE | ~2022-08-17 | CT_ITS ---
EXAMINATION: CT lung screening DATE: 08/17/2022 07:38 INDICATION: Lung cancer screening. History of tobacco dependence. TECHNIQUE: Computed tomography (CT) of the chest was performed without intravenous contrast. The dose -length product was 340.42 mGy-cm. Automated exposure control and iterative reconstruction technique were employed. COMPARISON: CT dated 03/12/2020 FINDINGS: No thoracic lymphadenopathy. There is atherosclerosis of the aorta and coronary arteries. N o significant pleural or pericardial effusion. No significant change to 3.1 cm left adrenal adenoma. There is a 4.8 cm exophytic left renal cyst. Status post cholecystectomy. No thoracic lymphadenopathy . There is an 8 mm right upper lobe nodule. There is interlobular septal thickening of the mid and lo wer lungs which may represent mild edema or interstitial lung disease. There are a few additional bryn ateral pulmonary nodules measuring 2 mm or less. No endobronchial lesions. No pneumothorax. Moderate thoracic spondylosis. There are changes of right shoulder arthroplasty. IMPRESSION: 1. Lung Rads category 4B-very suspicious: PET/CT and/or tissue sampling recommended depending on prob ability of malignancy and comorbidities. Reviewed, dictated and finalized at location A. IMPRESSION: 1. Lung Rads category 4B-very suspicious: PET/CT and/or tissue sampling recomme nded depending on probability of malignancy and comorbidities.
== END 2022-08-17 07:24 | disposition home or self-care (01) ==
LOC: ANHIMG 07:25
PROVIDERS: PCP Internal Medicine; Visit Provider Nurse Practitioner Family
DX: Z12.2 Encounter for screening for malignant neoplasm of respiratory organs (principal); Z87.891 Personal history of nicotine dependence; R91.8 Other nonspecific abnormal finding of lung field
CPT/HCPCS: 71271

== ENCOUNTER 2023-01-07 10:22 | Outpatient (CLI) | payer MEDICARE, SELFPAY ==
--- NOTE | ~2023-01-07 | MR_ITS ---
EXAMINATION: MR lumbar spine wo con DATE: 01/07/2023 11:30 INDICATION: Bilateral lower extremity weakness. TECHNIQUE: Magnetic resonance imaging (MRI) of the lumbar spine was performed without intravenous con trast. Sequences included sagittal T2-weighted FSE, sagittal T2-weighted FS FSE, sagittal T1-weighted FSE, and axial T2-weighted FSE. COMPARISON: Lumbar spine MRI 12/11/2021 FINDINGS: There is 3 degrees dextrocurvature of lumbar spine. S1 is a transitional segment. There are Schmorl's nodes at T11-T12, T12-L1, and L5-S1. There is mildly decreased disc height at L3-L4 and L5 -S1. Epidural lipomatosis is noted. There is ligamentum flavum hypertrophy at the lumbar disc levels. The distal spinal cord signal intensity is normal. The conus medullaris is at L1. There is Baastrup disease at L4-L5. There are cysts in the kidneys measuring up to 5.7 cm on the right. The following d isc levels are specifically discussed: L1-L2: The disc does not extend beyond the endplate margin. There is mild bilateral facet joint osteo arthritis. There is no neural foraminal stenosis. There is no central canal stenosis. L2-L3: The disc is bulging. There is mild right and severe left facet joint osteoarthritis. There is mild bilateral neural foraminal stenosis. There is no central canal stenosis. L3-L4: The disc is bulging and has an annular fissure. There is severe bilateral facet joint osteoart hritis. There is mild right and moderate left neural foraminal stenosis. There is mild central canal stenosis. L4-L5: The disc is bulging and has an annular fissure. There is severe bilateral facet joint osteoart hritis. There is a 6 mm synovial cyst in the posterior epidural space. There is moderate bilateral ne ural foraminal stenosis. There is mild central canal stenosis. L5-S1: The disc is bulging and has an annular fissure. There is severe bilateral facet joint osteoart hritis. There is moderate right and mild left neural foraminal stenosis. There is mild central canal stenosis. IMPRESSION: 1. Moderate lumbar spondylosis, stable from 12/11/2021. Reviewed, dictated and finalized at location A. ER
== END 2023-01-07 10:23 | disposition home or self-care (01) ==
LOC: ANHIMG 10:27
PROVIDERS: PCP Internal Medicine; Visit Provider Physician Assistant
DX: R29.898 Other symptoms and signs involving the musculoskeletal system (principal); M47.896 Other spondylosis, lumbar region
CPT/HCPCS: 72148

== ENCOUNTER 2023-02-27 17:25 | Emergency (ER) | payer MEDICARE, SELFPAY ==
[2023-02-27 17:30] VITALS: BP 173/64; PULSE 67; RESP 20; TEMP 36.6; O2SAT 98
--- NOTE | 2023-02-27 18:02 | ED.GENADULT ---
HPI - General Adult General Chief complaint: Chest Pain Stated complaint: Right Flank Pain Source: patient and family Mode of arrival: ambulatory Limitations: no limitations History of Present Illness HPI narrative: Patient presents for evaluation of right-sided chest pain. Symptom onset 4 days ago. Pain is intermittent, occurring to frequently to count, lasting variable amounts of time, without identified aggravating or relieving factors. Rates his pain 10/10 severity. He takes hydrocodone for chronic back pain but that has not helped. He has no underlying history of hypertension hyperlipidemia. He smokes half a pack per day. No hx of similar symptoms. Denies any nausea, vomiting, cough, shortness of breath, urinary symptoms. Related Data Allergies Allergy/AdvReac Type Severity Reaction Status Date / Time No Known Allergies Allergy Verified 12/24/22 10:00 Review of Systems Review of Systems: CONSTITUTIONAL: Denies fever, chills, or sweats. EYES: Denies visual changes, redness, or discharge. ENT: Denies rhinorrhea, congestion, sore throat, or otalgia. CARDIOVASCULAR: Reports right-sided chest pain. Denies palpitations, or edema. RESPIRATORY: Denies cough or dyspnea. GASTROINTESTINAL: Denies abdominal pain, nausea, vomiting, or diarrhea. GENITOURINARY: Denies dysuria or hematuria. SKIN: Denies rash or itching. MUSCULOSKELETAL: Denies back pain, joint pain, or myalgia. NEUROLOGIC: Denies headache, numbness, dizziness, or weakness. PSYCHIATRIC: Denies anxiety or depression. [facility] Past Medical History Medical History Abdominal pain Acute right-sided low back pain with right-sided sciatica Adult general medical exam Anxiety CAD in lower [place] artery Cirrhosis of liver without ascites Constipation Constipation due to opioid therapy Dizziness Dyslipidemia Dyspnea on exertion Encounter for screening for malignant neoplasm of colon Encounter for screening for malignant neoplasm of prostate Epigastric pain Essential (primary) hypertension Gastro-esophageal reflux disease without esophagitis Generalized abdominal pain Hernia History of calculus of gallbladder Hyperglycemia Hypothyroidism, unspecified Left ankle pain Low back pain Morbid obesity with BMI of 40.0-44.9, adult Numbness and tingling of both feet Other fatigue Paresthesia of skin Preop cardiovascular exam Pure hypercholesterolemia Scrotal mass Spinal stenosis of lumbar region Syncope and collapse TIA (transient ischemic attack) Tobacco abuse (~1967) Unspecified cataract Surgical History Surgical History History of elbow surgery History of hand surgery History of plastic surgery History of right knee surgery History of shoulder surgery Family History Family History Sibling Hypertension Patient's brother is in good health Family history of diabetes mellitus in first degree relative Father Patient's father is Family history of congestive heart failure, Onset Age: 73 Mother Diabetes mellitus, Onset Age: 80 Family history of congestive heart failure, Onset Age: 80 Social History Social History Smoking packs per day: 1 Smoking cigarettes per day: 20.0 Years smoked: 54 Smoking pack-years: 54.00 Smoking status: Current every day smoker Tobacco type: cigarettes Second hand tobacco smoke exposure: Yes Additional smoking assessment comments: Hugh has decreased smoking to 1PPD at this time Alcohol intake: former Drinks per week: 3 Substance use: never Substance use type: does not use Other substance usage details: for chronic back pain Lack of Transportation: No Lack of Food: Never True Current Housing: I Have Housing Concerned About Future Housing
== END 2023-02-27 18:00 | disposition home or self-care (01) ==
PROVIDERS: Emergency Provider Nurse Practitioner; PCP Internal Medicine
DX: R07.9 Chest pain, unspecified (principal); F17.210 Nicotine dependence, cigarettes, uncomplicated; I25.10 Atherosclerotic heart disease of native coronary artery without angina pectoris; K74.60 Unspecified cirrhosis of liver; E78.5 Hyperlipidemia, unspecified; I10 Essential (primary) hypertension; K21.9 Gastro-esophageal reflux disease without esophagitis; E03.9 Hypothyroidism, unspecified; E66.9 Obesity, unspecified; Z68.34 Body mass index [BMI] 34.0-34.9, adult; M48.061 Spinal stenosis, lumbar region without neurogenic claudication; Z86.73 Personal history of transient ischemic attack (TIA), and cerebral infarction without residual deficits; H26.9 Unspecified cataract
CPT/HCPCS: 99212; G0463

== ENCOUNTER 2023-05-18 09:13 | Outpatient (CLI) | payer MEDICARE, SELFPAY ==
--- NOTE | 2023-05-18 09:26 | ECHO_ITS ---
Patient Info Name: Hugh Diehl Age: 72 years : 1950 Gender: Male Ht: 71 in Wt: 249 lbs BSA: 2.42 m2 HR: 68 bpm BP: 144 / 71 mmHg Technical Quality: Good Exam Date: 05/18/2023 9:50 AM Exam Location: [facility] Patient Status: Outpatient Admit Date: 05/18/2023 Staff Ordering Physician: Rio Ng DO Magnetic Grinder Operator: Krystal Villareal RDCS Attending Provider: Rio Ng DO Referring Physician: Hernandez AGUIRRE; Exam Type: CA echo doppler color flow Study Info Indications - nonrheumatic aortic valve stenosis Complete two-dimensional, color flow and Doppler transthoracic echocardiogram is performed. Summary 1. Complete two-dimensional, color flow and Doppler transthoracic echocardiogram is performed. 2. Left ventricular chamber dimension is normal. 3. Left ventricular systolic function is normal, estimated at 60-65%. 4. The left ventricular diastolic function is grade I diastolic dysfunction. 5. E/e' 22 is elevated. 6. Left atrial chamber dimension is mildly enlarged. 7. There is severe aortic valve sclerosis. 8. There is moderate aortic valve stenosis with a peak velocity of 323 cm/s, mean gradient of 24 mmHg, and aortic valve area of 1.5 cm2. 9. There is trace aortic valve regurgitation. 10. The mitral valve has moderately calcified annulus. 11. There is trace tricuspid valve regurgitation. 12. No pulmonary hypertension, estimated pulmonary arterial systolic pressure is 24 mmHg. Left Ventricle E/e' 22 is elevated. Left ventricular chamber dimension is normal. Left ventricular systolic function is normal, estimated at 60-65%. The left ventricular diastolic function is grade I diastolic dysfunction. Right Ventricle Right ventricular chamber dimension is normal. Right ventricular systolic function is normal. Left Atria Left atrial chamber dimension is mildly enlarged. Right Atria Right atrial chamber dimension is normal. Aortic Valve The aortic valve is trileaflet. There is severe aortic valve sclerosis. There is moderate aortic valve stenosis with a peak velocity of 323 cm/s, mean gradient of 24 mmHg, and aortic valve area of 1.5 cm2. There is trace aortic valve regurgitation. Pulmonic Valve There is no pulmonic regurgitation. Mitral Valve The mitral valve has moderately calcified annulus. There is no mitral valve stenosis. There is no mitral valve regurgitation. Tricuspid Valve There is trace tricuspid valve regurgitation. No pulmonary hypertension, estimated pulmonary arterial systolic pressure is 24 mmHg. Pericardium/Pleural There is no pericardial effusion. Inferior Vena Cava Normal inferior vena cava with >50% collapse upon inspiration consistent with normal right atrial pressure, 5 mmHg. Aorta The aortic root size at the sinus of Valsalva is normal. Left Ventricular Outflow Tract Name Value Normal LVOT 2D LVOT Diameter 2.1 cm LVOT Doppler LVOT Peak Gradient 6 mmHg LVOT Mean Gradient 4 mmHg LVOT VTI 36 cm LVOT VTI/AV VTI Ratio 0.4 LVOT Stroke Volume 126 ml LVOT CO 19.3 l/min
== END 2023-05-18 09:14 | disposition home or self-care (01) ==
PROVIDERS: PCP Internal Medicine; Visit Provider Internal Medicine Cardiovascular Disease
DX: I35.0 Nonrheumatic aortic (valve) stenosis (principal)
CPT/HCPCS: 93306

== ENCOUNTER 2024-12-11 08:20 | Outpatient (CLI) | payer MEDICARE, SELFPAY ==
--- NOTE | ~2024-12-11 | US_ITS ---
EXAMINATION: US arterial ankle brachial ind DATE: 12/11/2024 09:30 INDICATION: Peripheral vascular disease. TECHNIQUE: Segmental pressures and plethysmographic and Doppler waveforms of the brachial and lower e xtremity arteries were obtained. COMPARISON: None. FINDINGS: Right and left brachial artery pressures of 141 mm Hg and 158 mm Hg, respectively, are concordant (no rmal difference <= 30 mmHg). The right ankle-brachial index (GT) is 0.93 (normal >= 0.9-1.0). The right great toe-brachial index (TBI) is 0.14 (normal >= 0.65). Arterial Doppler waveforms demonstrate brisk systolic upstrokes at maria l th right posterior tibial and dorsalis pedis arteries. The left GT is 0.46. The left TBI is 0.22. Arterial Doppler waveforms demonstrate brisk systolic ups trokes at both left posterior tibial and dorsalis pedis arteries. IMPRESSION: 1. Bilateral arterial occlusive disease with mildly decreased right GT and severely decreased right TBI and with severely decreased left GT and TBI. Reviewed, dictated and finalized at location B. 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 Bilateral arterial occlusive disease with mildly decreased right GT and sev erely decreased right TBI and with severely decreased left GT and TBI.
== END 2024-12-11 08:21 | disposition home or self-care (01) ==
PROVIDERS: PCP Internal Medicine; Visit Provider Internal Medicine
DX: I73.9 Peripheral vascular disease, unspecified (principal)
CPT/HCPCS: 93922